=== PATIENT | male | born 1975 | race Caucasian/White ===

== ENCOUNTER 2017-08-20 10:19 | Inpatient (IN) | payer MEDICAID, OTHER ==
[2017-08-20 11:30] LABS: #Basophils 0.1 thou/uL (0.0-0.2); #Eosinphils 0.6 thou/uL (0.0-0.7); #Lymphocytes 3.5 thou/uL (1.20-3.40); #Monocytes 0.8 thou/uL (0.11-0.59); #Neutrophils 5.7 thou/uL (1.40-6.50); %Eosinophils 5.4 % (0.0-10.0); %Lymphocytes 32.6 % (21.0-51.0); %Monocytes 7.1 % (0.0-10.0); %Neutrophils 53.9 % (42.0-75.0); Hemoglobin 13.7 g/dL (14.0-18.0); Mean Corpuscular HGB CONC 33.5 g/dL (32.0-36.0); Mean Corpuscular Hemoglobin 32.7 pg (27.0-31.0); Mean Corpuscular Volume 97.6 fl (80.0-94.0); Mean Platelet Volume 6.8 fL (7.4-10.4); Platelet Count 384 thou/uL (130-400); RBC Distribution Width 11.9 % (11.5-14.5); Red Blood Cell (RBC) Count 4.19 mill/uL (4.70-6.10); White Blood Cell (WBC) Count 10.6 thou/uL (4.8-10.8)
--- NOTE | 2017-08-20 11:43 | CT ---
NONCONTRAST LUMBAR SPINE CT: Date: 08/20/17 HISTORY: Sudden loss of sensation below the waist. Previous L4 fracture. COMPARISON: None. TECHNIQUE: Noncontrast lumbar spine CT is performed in the axial plane. Reformatted images are submitted for int erpretation. FINDINGS: No retroperitoneal mass, lymphadenopathy, or hematoma. Visualized aorta has a normal appearance. Ther e is patchy atherosclerosis. Symmetric attenuation of the psoas muscles. Nonobstructing calcification s in the right renal pelvis. Bilaterally, no evidence of obstructive uropathy. Visualized alimentary canal is unremarkable. Lumbar spine vertebral body height is maintained. There is no fracture. There are six lumbar-type asa tebral bodies. There is lumbar fusion change at the L5-L6 level. There are bilateral transpedicular s crews. No perihardware lucency. There is a prosthesis at the L5-L6 disc space level. 5.6 mm of les listhesis of L5 upon L6. There are bilateral facetectomies involving the inferior facet of L5. Limited evaluation of the contents of the central spinal canal and neural foramina due to the lack of intrathecal contrast. T12-L1: No significant central canal stenosis. Neural foramina are patent bilaterally. L1-L2: Minimal generalized disc bulge. Minimal central canal stenosis. Mild bilateral foraminal narrowing. L2-L3: No significant posterior disc abnormality. No significant central canal stenosis. Mild bilateral fora radha narrowing. L3-L4: Generalized disc bulge. Minimal ligamentum flavum thickening and facet hypertrophy. No significant ce ntral canal stenosis. Mild bilateral foraminal narrowing. L4-L5: Generalized disc bulge. Minimal ligamentum flavum thickening and facet hypertrophy result in minimal central canal stenosis. Moderate bilateral foraminal narrowing. L5-L6: Posterior decompressive laminectomy defect. Limited evaluation of the central spinal canal due to denisha m attenuation artifact. Obvious high grade central canal stenosis is not appreciated. There is at richard st moderate bilateral foraminal narrowing. There appears to be soft tissue density at the laminectomy defect site likely representing scar tissue. Scar tissue appears to abut the posterior aspect of the thecal sac. There is also subtle slightly hyperdensity along the posterior right aspect of the centr al canal. There may be some mass effect upon the traversing right S1 nerve root. L6-S1: No high grade central canal stenosis. Neural foramina are patent. IMPRESSION: Postsurgical changes as above. There is extensive soft tissue density at the laminectomy defect site, incompletely evaluated. There may be significant stenosis of the thecal sac at the operative site. N eurosurgical consultation is recommended. POS: [facility]
--- NOTE | 2017-08-20 11:47 | CT ---
CT THORACIC SPINE WITH CORONAL AND SAGITTAL REFORMATIONS: Date: 08/20/17 HISTORY: Sudden loss of sensation below the waist. Patient had previous L4 fracture. FINDINGS/IMPRESSION: Vertebral body heights are maintained. No fracture, subluxation, or bony destruction is seen. There a re degenerative changes in the costovertebral joints at multiple levels. The visualized lung shanks are clear. A tiny, nonobstructing right renal calculus is present. If a MRI cannot be performed, a CT myelogram would be helpful if clinically indicated. POS: [facility]
[2017-08-20 11:51] LABS: ALT (SGPT) 53 U/L (8-55); AST (SGOT) 37 U/L (5-34); Albumin 4.4 g/dL (3.5-5.0); Alkaline Phosphatase 101 U/L (40-150); Anion Gap 13 mmol/L (10-20); BUN (Urea Nitrogen) 6 mg/dL (8.9-20.6); Bilirubin, Total 0.8 mg/dL (0.2-1.2); Calc. Creatinine Clearance 0 mL/min (70-130); Calcium 10.1 mg/dL (7.8-10.44); Carbon Dioxide 27 mmol/L (22-29); Chloride 103 mmol/L (98-107); Estimated GFR-MDRD Greater than 90; Globulin 3.5 g/dL (2.4-3.5); Glucose 141 mg/dL (70-105); Potassium 3.9 mmol/L (3.5-5.1); Protein, Total 7.9 g/dL (6.0-8.3); Sodium 139 mmol/L (136-145)
--- NOTE | 2017-08-20 14:47 | MRI ---
MRI CERVICAL SPINE WITHOUT CONTRAST: Date: 08/20/17 Multiplanar, multisequential imaging of the cervical spine obtained. HISTORY: Loss of sensation below the waist. Evaluate for disc herniation. No comparison. FINDINGS: Cervical vertebra maintain normal height and alignment. Disc spaces show mild narrowing at C5-6. The other disc spaces are relatively well preserved. Very mild degenerative osteophytes in the cervical v ertebra. At C3-4, there is mild disc bulge and spondylosis which abuts the anterior cord. Mild bilateral piter inal narrowing due to uncinate hypertrophy. At C4-5, there is minimal spondylosis with no significant disc bulge. Anterior subarachnoid space is preserved. No significant foraminal encroachment or stenosis. At C5-6, there is a prominent disc protrusion paracentrally to the left, severely flattening the cord . This is measured at up to 8.0 mm AP dimension in the axial plane. There is severe impingement on th e cord. There is abnormal signal within the cord at this level indicating myelomalacia. There is a si gnificant focus of increased T2 signal in the cord to the right of midline at C5-6 which measures susy roximately 9.0 mm craniocaudal dimension in the sagittal plane. At C6-7, there is no significant disc abnormality. IMPRESSION: 1. Large disc protrusion paracentrally to the left at C5-6 severely compresses the cord and produces left foraminal stenosis. There is significant cord signal abnormality within the cord to the right o f midline at the C5-6 level consistent with cord edema and/or myelomalacia. 2. Mild disc bulge and spondylosis at C3-4 is noted as described above. POS: [facility]
[2017-08-20] MEDS ORDERED: Dexamethasone 4 mg/ml Vial ONE (15:23)
[2017-08-20 17:31] VITALS: BMI 32.3
--- NOTE | 2017-08-20 17:31 | PRG ---
DATE OF SERVICE: 08/20/2017 NEUROSURGERY PROGRESS NOTE I personally interviewed and examined the patient and agree with documentation of Shannon Rogel PA-C , dated 08/20/2017. Briefly, Aubrey Mireles is a patient from our neurosurgery clinic. In 2016, we performed a decompressi on fusion in the lumbar spine that went well and he made a nice recovery. He had no known cervical s pondylitic myelopathy for which he consulted with us recently. An MRI scan showed very large disk he rniation at C5-6 and small one at C3-4, both associated with a T2 signal change in his spinal cord. There were multiple attempts with the insurance company with trying to get ACDF at 2 levels approved. They have been dragging their feet and denying surgery for some reason. He has myelopathic finding s on examination and cord compression and I cannot understand their denial. It is with his sister that Mr. Mireles was at home attempting to go up the ramp at his house when he fe ll today and falling resulted in some patchy sensory alteration in multiple areas of the body, which are difficult to explain, to be honest. On examination, when I see him in the emergency department, he has antigravity strength in all of his muscles of his lower extremities and sensation all the way to the bottom of his feet and in the sadd le area. When specifically asking him, he does not cooperate reliably with his examination. At firs t, there is sensation all the way down the leg and then the sensation sometimes stops at the umbilicu s. Subjectively, sensation is intact farther down on the abdominal surface on the left side than the right, but the opposite is true on the back of the thorax. When I asked him to perform motor maneuv ers with the lower extremities, he often performs the maneuver with the opposite leg. He tells me he forgot which leg he needed to move, all of which makes me wonder about true neurological function. Nonetheless, he cannot purposefully reproduce the pathologically brisk reflexes and clonus that he ex hibits on examination. His MRI scan of the cervical spine looks exactly like the previous one with T 2 signal change in the cord at C3-4 and C5-6. There are 2 large disk protrusions and cord compressio n, which are indeed causing symptoms, in my view. Because of the new sensory alterations around the level of the umbilicus and below, I think we are ob ligated to get an MR imaging of the thoracic and upper lumbar spine tomorrow, but my plan is to immob ilize the neck, use some steroids to cool off any inflammation that is happening and perform an ACDF at 2 levels in the coming day or two while he is in the hospital and hopefully get him discharged bef ore the weekend. We will admit him now. We will schedule MR imaging of the thoracic and lumbar spin e tomorrow. We will ask Medicine to see him for elevated sed rate and CRP to see if there is any inf ection that they can find, although he is afebrile. He has been consented already to surgery. We we nt over again the indications, risks, benefits, alternatives, expected outcomes of ACDF. The risks w e discussed included, but were not limited to bleeding, infection, CSF leak, damage to the trachea, e sophagus, vocal cords carotid artery, jugular vein, swallowing mechanism and serious complications li ke cardiopulmonary complications of anesthesia, major bleeding and . He understands all those r isks and wants to proceed with the surgery we outlined in clinic.
[2017-08-20 18:14] LABS: Bilirubin Negative (Negative); Blood, Urine Negative (Negative); Clarity CLEAR (Clear); Glucose, Urine (Dipstick) Negative (Negative); Leukocyte Negative (Negative); Nitrite Negative (Negative); Protein, Urine (Dipstick) Negative (Neg-Trace); Specific Gravity, Urine 1.008 (1.002-1.036)
[2017-08-20 18:15] LABS: Bacteria/HPF None Seen HPF (None Seen); Hyaline Casts/LPF 0-3 HYALINE CAST LPF (0-3 Hyaline); Pathc Cast-AUWi Flag 0.13 (0-2.49); RBC/HPF 0-3 HPF (0-3); Squamous Epithelial None Seen HPF (0-3); WBC/HPF None Seen HPF (0-3)
[2017-08-20] MEDS ORDERED: traMADol HCl 50 MG TAB PO PRN (19:52)
[2017-08-20] MEDS ORDERED: diphenhydrAMINE 50 MG/ML VIAL IVP PRN (19:52)
[2017-08-20] MEDS ORDERED: Mag-Al 1200 mg/1200 mg/30 ML UDCUP PO PRN (19:52)
[2017-08-20] MEDS ORDERED: Promethazine 25 MG TAB PO PRN (19:52)
[2017-08-20] MEDS ORDERED: Milk Of Magnesia 30 ML UDCUP PO PRN (19:52)
[2017-08-20] MEDS ORDERED: tiZANidine HCl 4 MG TAB PO PRN (19:52)
[2017-08-20] MEDS ORDERED: Ondansetron HCl/PF 4 MG/2 ML Vial IVP PRN (19:52)
[2017-08-20] MEDS: Sodium Chloride 0.9% 1,000 ML IV SCH (20:53)
[2017-08-20] MEDS: Glimepiride 4 MG TAB PO SCH (20:54)
[2017-08-20] MEDS: Atorvastatin Calcium 20 MG TAB PO SCH (20:54)
[2017-08-20] MEDS: Gabapentin 300 MG CAP PO SCH (20:54)
--- NOTE | 2017-08-20 22:31 | HP ---
ATTENDING PHYSICIAN: Brook Reece M.D. HISTORY OF PRESENT ILLNESS: The patient is a 42-year-old male known to Dr. Reece for a prior L5-L6 lumbar fusion in 2016, who was doing well until the last several weeks when he began hav ing some dysesthesias to the arms and weakness to bilateral lower extremities. He was evaluated in [facility] for these suspected cervical myelopathic symptoms and MRI of the cervical spine was done which was notable for disk herniation at C5-C6 and also a smaller disk herniation at C3-C4 associated with significant cord compression. He had planned to do 2-level ACDF in the near future; however, it has been difficult getting insurance approval. Mr. Mireles reports that his symptoms became progressively worse yesterday after a fall with increased weakness to bilateral lower extremities as well as increa sing dysesthesias to the legs. He was seen in the Emergency Department and evaluated with repeat cer vical MRI which again shows large disk herniation at C5-C6 and smaller disk herniation at C3-C4 with a T2 signal change. I am seeing the patient on the floor. He reports sensory changes in bilateral l ower extremities occasionally to the bilateral upper extremities. He reports on my exam, he is signi ficantly weak in the legs and unable to ambulate on his own. He has hyperreflexia throughout and had a positive clonus to the lower extremities. PAST MEDICAL HISTORY: The patient reports he has a past medical history of hypertension, hyperlipide enma, type 2 diabetes. PAST SURGICAL HISTORY: L4-L5 decompression and fusion, wrist surgery, reconstructive duct surgery. FAMILY HISTORY: Notable for diabetes, hypertension, coronary artery disease. SOCIAL HISTORY: The patient is . He lives at home. He smokes approximately 2 packs of cigar ettes per day. CURRENT MEDICATIONS: Tylenol #3 one tab p.o. t.i.d., amlodipine 5 mg tab 1 tab p.o. daily, atorvasta tin 20 mg tab 1 tab p.o. at bedtime, bupropion 100 mg tab 1 tab p.o. daily, gabapentin 300-mg tab 600 mg p.o. t.i.d., glimepiride 4 mg tab 1 tab p.o. b.i.d., metformin 500-mg tab 500 mg p.o. daily, and tizanidine 4 mg tab 1 tab p.o. b.i.d. REVIEW OF SYSTEMS: Per HPI. PHYSICAL EXAMINATION: CONSTITUTIONAL: Patient is sitting in the wheelchair, in no acute distress, comfortable. HEENT: Head is normocephalic, atraumatic. Eyes: PERRLA. Extraocular movements are intact. ENT: Oral mucosa is pink, intact and moist. He has normal voice. NECK: He is currently wearing a cervical collar. CARDIOVASCULAR: Regular rate and rhythm. PULMONARY: The patient is breathing comfortably. No evidence of dyspnea. Symmetric chest expansion . MUSCULOSKELETAL: He has good muscle tone to bilateral upper and lower extremities. Symmetric pulses 5/5 strength in the upper extremities. Negative Paulino's. Slightly hyperreflexive in the biceps a nd triceps. Lower extremities: He is significantly weak throughout the lower extremities 4-/5 on my exam. He is unable to ambulate secondary to his weakness. He is hyperreflexive in the lower extrem ities and he has a positive clonus. NEUROLOGIC: He is A and O x4. Weakness appreciated in the bilateral lower extremities. ASSESSMENT AND PLAN: I discussed the case with Dr. Reece who will also see the patient. He is r ecommended that we start patient on steroids and I have ordered 10 Decadron to be given in the ER and will continue 4 mg q.6 hours. We will also evaluate the patient further with a thoracic and lumbar MRI. The hospitalist has been consulted for assistance in medical management. The patient will requ yolanda surgical intervention and this will likely be done on morning. Please reach out to Neur osurgery Service for additional questions or concerns.
[2017-08-21] MEDS ORDERED: Dextrose 5% in Water 1,000 ML IV PRN (05:06)
[2017-08-21] MEDS ORDERED: Insulin Regular 300 UNITS/3 ML VIAL SC PRN (05:06)
[2017-08-21] MEDS ORDERED: Dextrose 50% Abboject 50 ML SYRINGE SLOW IVP PRN (05:06)
--- NOTE | 2017-08-21 06:36 | CON ---
DATE OF CONSULTATION: 08/21/2017 REASON FOR CONSULTATION: Medical management. HISTORY OF PRESENT ILLNESS: This is a 42-year-old male with a history of diabetes, hypertension, and hyperlipidemia who presented with weakness to bilateral lower extremities, numbness of right upper extremity and right lower extremity. Please see the original history and physical for full details surrounding his admission. The patient was found to have disk herniation of C5- C6 with smaller disk herniation at C3-C4. It appears that there are plans for potential neurosurgical intervention this week. The patient is able to provide the history as above. Consultation is requested for medical management of co- morbidities including DM2, hypertension. At the time of my evaluation, the patient denies any pain, he reports subjective weakness of bilateral lower extremities and anesthesia of his right foot and right upper extremity. Denies any other complaints. Denies any neck pain. REVIEW OF SYSTEMS: As per HPI, includes: Constitutional: Denies any recent fevers or chills. Denies any weight changes. HEENT: Denies any new headaches , dizziness, lightheadedness, difficulty swallowing. Cardiovascular: Denies any chest pressure, chest pain, left-sided arm numbness or tingling. Respiratory: Denies any episodes of shortness of breath, cough, recent upper respiratory infection. Denies any congestion, postnasal drip or ear pain. Gastrointestinal: Denies any nausea, vomiting. Denies any abdominal pain. Denies any constipation, did have loose stools yesterday, but denies any frequent diarrhea beyond 1 to 2 bowel movements a day. Musculoskeletal: Please see the HPI as above. Genitourinary: Denies any dysuria, any changes in urine color, quantity or frequency. Remainder of review of systems otherwise negative. PAST MEDICAL HISTORY: As per above. 1. Type 2 diabetes. 2. Obesity. 3. Hypertension. 4. Hyperlipidemia. PAST SURGICAL HISTORY: 1. Status post L4-L5 decompression and fusion. 2. Reconstructive duct surgery. 3. Status post wrist surgery. HOME MEDICATIONS: Please see the EMR for full details. The patient denies any changes in the last month to his home medication regimen. Denies any new over the counter, herbal regimens, vitamins or supplements in the past month.. FAMILY HISTORY: Significant for coronary artery disease, diabetes, and hypertension. SOCIAL HISTORY: The patient is . His is with him at bedside. He is an active tobacco smoker, 2 packs per day. Currently precontemplative of cessation. Denies any alcohol or illicit drug use. PHYSICAL EXAMINATION: VITAL SIGNS: Temperature of 97.8, pulse of 93, respirations 19, satting 94% on room air, blood pressure 126/85. GENERAL: The patient is awake, alert, appropriate, reasonable historian, provides a history as above, awake and oriented x3, no acute distress, seated in the hospital bed. HEENT: Moist mucous membranes. Equal ocular motions are intact. Pupils equal and reactive. Normocephalic, atraumatic. CARDIOVASCULAR: S1, S2. Pulses 2+ bilateral upper extremities, no pitting pedal edema. No murmurs, rubs or gallops. RESPIRATORY: Clear to auscultation. No wheezes, rales or rhonchi. Reasonable air movement. ABDOMEN: Positive bowel sounds, soft, nontender to palpation. MUSCULOSKELETAL: Moving all 4 extremities, although the patient states that he "has to concentrate" within the right lower extremity which is grossly strength 4/5 on right, 5/5 on the left, did not test reflexes or sensation. LABORATORY DATA AND IMAGING: WBC 10.6, hemoglobin 13.7, hematocrit 40.9, platelets 384. Sodium 139, potassium 3.9, chloride 103, bicarb 27, BUN 6, creatinine 0.82, glucose 141, calcium 10.1, total bilirubin 0.7, AST 37, ALT 53 , alkaline phosphatase 101. CRP 3.25, total protein 7.9, albumin 4.4. UA is essentially bland. On 08/20/2017, MRI of the cervical spine, impression: "Large disk protrusion paracentrally to the left at C5-C6 severely compresses the cord and produces left foraminal stenosis. There is significant cord signal abnormality within the cord to the right of midline at the C5-C6 level consistent with cord edema and/or myelomalacia. Mild disk bulge and spondylosis at C3-C4 as noted and described above." On 08/20/2017, lumbar spine CT, impression: "Postsurgical changes as above. There is extensive soft tissue density at the laminectomy defect site incompletely evaluated. There may be significant stenosis of the thecal sac at the operative site. Neurosurgical consultation is recommended." On 08/20/2017, thoracic spine finding, impression: Vertebral body heights are maintained. No fracture, subluxation, or bony destruction is seen. There are degenerative changes in the costovertebral joints at multiple levels. The visualized lung shanks are clear. A tiny nonobstructing right renal calculus is present. If an MRI cannot be performed, CT myelogram would be helpful if clinically indicated. ASSESSMENT AND PLAN: A 42-year-old male presenting with sudden loss of sensation below the wrist on right side. 1. Appreciate neurosurgical input, management as per Neurosurgery. 2. Type 2 diabetes. The patient is currently continued on his home regimen. If the patient is going to the OR, we will consider holding oral antihyperglycemic. We continue monitoring with sliding scale insulin and serial Accu-Cheks. The patient is currently on steroids for cord edema and this will likely produce some medication-induced hyperglycemia to be managed with insulin on a "sliding scale" basis. 3. Hypertension, stable. 4. Hyperlipidemia, stable. Thank you for asking us to consult for the patient. As the patient is currently afebrile without leukocytosis, I would recommend holding off on empiric antibiotics other than the typical pre-operative regimen. If there is any concern for infection, surgical culture obtained during procedure would be optimal to determine if any long-term antibiotics are warranted. We will follow along with you. SIMA
--- NOTE | 2017-08-21 07:36 | PRG ---
DATE OF SERVICE: 08/21/2017 Mr. Mireles is feeling better after steroid administration overnight. The subjective patchy sensory lo ss from the umbilicus down has improved, but is not normal. He does not know if his leg strength is back to normal. The neck collar feels a bit uncomfortable, but he is getting used to it and he is an xious not having his nicotine. Overnight, the vitals have been stable. On my neurological examination, I do not find any new defici ts from yesterday. In fact, the sensory disturbance has subjectively improved. There is no new imaging to update yet for planning a thoracic and lumbar film this time with contrast due to the elevated sedimentation rate and C-reactive protein. We will ensure that there is no cord compression elsewhere, which I do not believe we will find, and if not, we will plan an ACDF at C3-4 and C5-6 tomorrow. He has been consented for this a number of times. I appreciate the help of the medical team in managing his diabetes and following up an elevated C-juaquin ctive protein and sed rate.
[2017-08-21] MEDS ORDERED: metFORMIN 500 MG TAB PO SCH (09:00)
[2017-08-21] MEDS: Gabapentin 300 MG CAP PO SCH ×3 (09:39→20:50)
[2017-08-21] MEDS: Glimepiride 4 MG TAB PO SCH (09:40)
[2017-08-21] MEDS: buPROPion HCl 100 MG TAB PO SCH (09:40)
[2017-08-21] MEDS: Amlodipine 5 MG TAB PO SCH (09:40)
--- NOTE | 2017-08-21 13:19 | MRI ---
MRI THORACIC SPINE WITH AND WITHOUT CONTRAST: Technique: Multiplanar, multisequential imaging of the thoracic spine obtained. Post contrast images were obtained after administration of 20 cc MultiHance IV. Indication: Pain alteration below umbilicus. Leg weakness. FINDINGS: The thoracic vertebrae maintain normal height and alignment. There is a rounded lesion involving the T9 vertebra which exhibits high T1 and high T2 signal consistent with vertebral body hemangioma. There is evidence of subtle edema and enhancement involving the anterior superior aspect of the T2 ve rtebra. This may be on the basis of mild degenerative endplate change. There is no loss of height. No evidence of edema or enhancement seen in the thoracic spine. T4-5: There is a tiny signal abnormality seen in the anterior spinal canal at the right of midline, p ossibly represent a tiny focal disc or osteophyte which indents the thecal sac and is best appreciate d on T2 axial images. No significant cord impingement. T5-6: Evidence of a small asymmetric disc or osteophyte projection centrally and slightly to the righ t of midline flattening the thecal sac and effacing the anterior subarachnoid space. This does appear to impinge on the cord and produces slightly flattening of the anterior cord to the right, best appr eciated on the axial images. No other evidence of significant disc bulge or disc protrusion. No other central canal stenosis or im pingement on the cord. No abnormal enhancement. IMPRESSION: 1. At T5-6 there is a small signal abnormality encroaching into the spinal canal centrally and just t o the right of midline which is consistent with small disc or osteophyte which does impinge on the co rd, best appreciated on axial images. 2. T4-5 there is also a tiny disc or osteophyte projecting into the anterior spinal canal to the righ t of midline mildly effacing the anterior subarachnoid space but not appearing to impinge on the cord . Again this is best seen on axial images. POS: [facility]
--- NOTE | 2017-08-21 13:21 | MRI ---
LUMBAR SPINE MRI WITH AND WITHOUT CONTRAST: HISTORY: Paresthesia from the waist down. Decreased leg sensation. Elevated PROCUREMENT ACCOUNTANT and ESR. Evaluate for infec tion. COMPARISON: None. CORRELATION: Lumbar spine CT from 08/20/2017. FINDINGS: There is appropriate T1 marrow signal intensity of the lumbar vertebra. There is fusion change at L5 and L6. Nomenclature follows the CT performed yesterday. There is associated metallic susceptibili ty artifact. There is abnormal soft tissue signal intensity at the laminectomy defect site at L5-L6. There is T2 hypointensity and T1 hypointensity with associated mild enhancement. Imaging features are most compatible with post surgical scar rather than an abscess. There is symmetric signal intensity of the psoas muscles. There is appropriate signal intensity of t he visualized solid organs. The conus medullaris terminates at the L1-L2 level. On the post contrast images, there is no abnormal enhancement within the thecal sac, including the ca uda equina and the conus medullaris. There is no abnormal enhancement of the vertebral bodies. No significant STIR hyperintensity, disk edema, or ligamentous injury. L1-L2: Right paroxysmal disk bulge. Mild central canal stenosis. The right neural foramen is paten t. L2-L3: Mild left foraminal narrowing at L2-L3. Adequate disk hydration. No high grade central vitaliy l stenosis. The neural foramina are patent bilaterally. L3-L4: No high grade central canal stenosis. Mild bilateral foraminal narrowing. L4-L5: No high grade central canal stenosis. There is posterior element hypertrophy. Mild bilatera l foraminal narrowing. L5-L6: Posterior decompressive laminectomy defect. No high grade central canal stenosis. Moderate bilateral foraminal narrowing. L6-S1: No high grade central canal stenosis or high grade foraminal narrowing. IMPRESSION: 1. Post surgical and degenerative changes of the lumbar spine, as above. 2. Enhancing scar tissue at the laminectomy defect site. No MR evidence of epidural abscess. No ot her scar tissue. No high grade central canal stenosis is appreciated. The previously suggested mass effect on the traversing right S1 nerve root is not appreciated at the L5-L6 level. POS: [facility]
[2017-08-21] MEDS: HYDROcodone/Acetaminophen 7.5/325 mg Tablet PO PRN ×2 (15:00→20:49)
[2017-08-21] MEDS: Sodium Chloride 0.9% 1,000 ML IV SCH ×2 (15:00→22:49)
[2017-08-21] MEDS: Atorvastatin Calcium 20 MG TAB PO SCH (20:50)
--- NOTE | 2017-08-22 07:05 | PRG ---
DATE OF SERVICE: 08/22/2017 I saw Mr. Mireles this morning, he is resting comfortably in bed as I entered the room and arouses afte r we arouse him. He recently got some narcotic pain medication and therefore he is quite sleepy, but awakes and answers questions appropriately. I do not see any fevers recorded on his vital signs. H is other vitals are all stable. His neurological examination is improved since his admission with th e addition of steroids after his very mild spinal cord injury from a fall. MR imaging performed yesterday did not show significant cord compression or canal stenosis in the tho racic or the lumbar spine and there is no evidence of acute injury. Mr. Mireles has disk disease at C3-4 and at C5-6, both of which cause cord compression and T2 signal ch miguel in the cord. He has myelopathy and we are going to fix it today with an ACDF. I have consented him multiple times to the surgery and he has agreed to proceed. He has been n.p.o. We will do the operation this afternoon.
[2017-08-22] MEDS: Amlodipine 5 MG TAB PO SCH (09:09)
[2017-08-22] MEDS: Gabapentin 300 MG CAP PO SCH ×3 (09:10→21:45)
[2017-08-22] MEDS: buPROPion HCl 100 MG TAB PO SCH (09:12)
--- NOTE | 2017-08-22 13:48 | PDOC.PN ---
- Subjective Encounter Start Date: 08/22/17 Encounter Start Time: 08:40 Pt seen for followup re; diabtes mellitus. Denies chest pain or shortness of breath. - Objective Vital Signs & Weight: Vital Signs (12 hours) Temp Pulse Resp BP Pulse Ox 08/22/17 11:45 98.1 F 82 16 164/99 H 98 08/22/17 09:09 73 08/22/17 07:40 97.9 F 73 20 134/83 97 08/22/17 05:06 98.0 F 65 19 136/88 95 I&O: 08/21/17 08/22/17 08/23/17 06:59 06:59 06:59 Intake Total 1050 1500 Output Total 800 Balance 1050 700 Result Diagrams: 08/20/17 11:20 08/20/17 11:20 Additional Labs: Accuchecks 08/22/17 08/22/17 08/21/17 11:44 06:02 20:36 POC Glucose 152 H 180 H 160 H 08/21/17 15:39 POC Glucose 139 H Phys Exam - Physical Examination Constitutional: NAD HEENT: moist MMs C-spine collar Respiratory: clear to auscultation bilateral Cardiovascular: RRR Gastrointestinal: soft Neurological: moves all 4 limbs Psychiatric: normal affect Dx/Plan (1) DM2 (diabetes mellitus, type 2) Status: Chronic Comment: Continue accuchecks, insulin sliding scale. (2) HTN (hypertension) Code(s): I10 - ESSENTIAL (PRIMARY) HYPERTENSION Status: Chronic Comment: Monitor vital signs, titrate antihypertensives as needed (3) Dyslipidemia Code(s): E78.5 - HYPERLIPIDEMIA, UNSPECIFIED Status: Chronic Comment: Continue statin - Plan * . Review of Systems - Review of Systems Respiratory: negative: Cough, Dry, Shortness of Breath, Hemoptysis, SOB with Excertion, Pleuritic Pain, Sputum, Wheezing Cardiovascular: negative: chest pain, palpitations, orthopnea, paroxysmal nocturnal dyspnea, edema, light headedness - Medications/Allergies Allergies/Adverse Reactions: Allergies Allergy/AdvReac Type Severity Reaction Status Date / Time amoxicillin Allergy Verified 08/31/15 12:45 iodine Allergy Rash Verified 08/31/15 12:45 Medications: Current Medications Hydrocodone Bitart/Acetaminophen ([place] 7.5/325) 1 tab PO Q4H PRN PRN Reason: Moderate Pain (4-6) Last Admin: 08/21/17 20:49 Dose: 1 tab Al Hydroxide/Mg Hydroxide (Maalox) 30 ml PO Q4H PRN PRN Reason: Indigestion Amlodipine Besylate (Norvasc) 5 mg PO DAILY [facility] Last Admin: 08/22/17 09:09 Dose: 5 mg Atorvastatin Calcium (Lipitor) 20 mg PO HS [facility] Last Admin: 08/21/17 20:50 Dose: 20 mg Bupropion HCl (Wellbutrin) 100 mg PO DAILY [facility] Last Admin: 08/22/17 09:12 Dose: 100 mg Dextrose/Water (Dextrose 50%) 25 gm SLOW IVP PRN PRN PRN Reason: Hypoglycemia Diphenhydramine HCl (Benadryl) 25 mg IVP Q6H PRN PRN Reason: Itching Gabapentin (Neurontin) 600 mg PO TID [facility] Last Admin: 08/22/17 09:10 Dose: 600 mg Glucagon (Glucagon) 1 mg IM PRN PRN PRN Reason: Hypoglycemia Sodium Chloride (Normal Saline 0.9%) 1,000 mls @ 75 mls/hr IV .[id number] [facility] Last Admin: 08/21/17 22:49 Dose: Not Given Dextrose/Water (D5w) 1,000 mls @ 0 mls/hr IV .Q0M PRN; As Directed PRN Reason: Hypoglycemia Insulin Human Regular (Humulin R) 0 units SC .MILD SLIDING SCALE PRN PRN Reason: Mild Correctional Scale Magnesium Hydroxide (Milk Of Magnesium) 30 ml PO Q12H PRN PRN Reason: Constipation Morphine Sulfate (Morphine Sulfate) 2 mg SLOW IVP Q1H PRN PRN Reason: Moderate Breakthrough Pain Last Admin: 08/22/17 09:29 Dose: 2 mg Ondansetron HCl (Zofran) 4 mg IVP Q6H PRN PRN Reason: Nausea Promethazine HCl (Phenergan) 12.5 mg PO Q4H PRN PRN Reason: Nausea/Vomiting Sodium Chloride (Flush - Normal Saline) 10 ml IVF PRN PRN PRN Reason: Saline Flush Tizanidine HCl (Zanaflex) 4 mg PO Q6H PRN PRN Reason: Muscle Spasm Tramadol HCl (Ultram) 50 mg PO Q6H PRN PRN Reason: Mild Pain (1-3)
[2017-08-22] MEDS ORDERED: CEFAZOLIN/Water 2 GM/20 ML SYRINGE ONE (14:05)
[2017-08-22] MEDS: Sodium Chloride 0.9% 1,000 ML IV SCH (14:33)
[2017-08-22] MEDS ORDERED: Morphine 2 MG/ML SYRINGE ONE (14:44)
[2017-08-22] MEDS ORDERED: Lidocaine 1% PF 5 ML VIAL ONE (15:16)
[2017-08-22] MEDS ORDERED: Ondansetron HCl/PF 4 MG/2 ML Vial ONE (15:16)
[2017-08-22] MEDS ORDERED: Glycopyrrolate 0.2 MG/ML 5 ML SYRINGE ONE (15:16)
[2017-08-22] MEDS ORDERED: ePHEDrine/0.9% NaCl/PF SYRINGE 50 mg/10 ml ONE (15:16)
[2017-08-22] MEDS ORDERED: Dexamethasone 20 MG/5 ML VIAL ONE (15:16)
[2017-08-22] MEDS ORDERED: PROPOFOL 200 MG/20 ML VIAL ONE (15:16)
[2017-08-22] MEDS ORDERED: Sodium Chloride 0.9% 10 ML ONE (15:21)
[2017-08-22] MEDS ORDERED: Thrombin 5000 UNITS/5 ML VIAL ONE (15:21)
[2017-08-22] MEDS ORDERED: Fentanyl 250 MCG/5 ML VIAL ONE ×2 (15:32→19:35)
[2017-08-22] MEDS ORDERED: Fentanyl 100 MCG/2 ML VIAL ONE (17:38)
[2017-08-22] MEDS ORDERED: tiZANidine HCl 4 MG TAB PO PRN (19:11)
[2017-08-22] MEDS ORDERED: Acetaminophen/Codeine 30-300mg Tablet PO PRN (19:11)
[2017-08-22] MEDS ORDERED: Morphine Sulfate 2 MG/ML SYRINGE SLOW IVP PRN (19:29)
[2017-08-22] MEDS ORDERED: Promethazine HCl 25 MG/ML VIAL SLOW IVP PRN (19:29)
[2017-08-22] MEDS ORDERED: Promethazine HCl 25 MG/ML VIAL IM PRN (19:29)
[2017-08-22] MEDS ORDERED: Ondansetron HCl/PF 4 MG/2 ML Vial IVP PRN (19:29)
[2017-08-22] MEDS: HYDROcodone/Acetaminophen 7.5/325 mg Tablet PO PRN (21:47)
[2017-08-22] MEDS: Atorvastatin Calcium 20 MG TAB PO SCH (21:48)
--- NOTE | 2017-08-22 22:07 | OP ---
DATE OF PROCEDURE: 08/22/2017 SURGEON: Sharita Reece HAND SCUDDER: None. PREOPERATIVE INDICATION: Prevent neurological deterioration. PREOPERATIVE DIAGNOSES: Intervertebral disk disease at C3-C4 and C5-C6 with cord compression and mye lopathy, recent fall with worsening of myelopathy. POSTOPERATIVE DIAGNOSES: Intervertebral disk disease at C3-C4 and C5-C6 with cord compression and my elopathy, recent fall with worsening of myelopathy. PROCEDURES PERFORMED: Anterior cervical diskectomy, intervertebral arthrodesis, placement of interve rtebral biomechanical device C3-C4 and C5-C6, local morselized autograft, morselized Allograft, and o perating microscope. PREOPERATIVE MEDICATION: Ancef 2 grams IV. DRAIN NUMBER: Zero. DRAIN TYPE: None. DESCRIPTION OF PROCEDURE: The patient was brought to the operating room. Keeping the neck in normal anatomic alignment, general endotracheal anesthesia was induced. The patient was carefully position ed on the operating table with his head supported by gel-filled donut shaped head rest and head in ne utral position. A lateral fluoro radiograph was used to plan our incision. The rest of the neck was sterilely prepped and draped. We opened with a 10 blade knife and controlled bleeding with bipolar cautery. We dissected sharply to the platysma and cut this muscle in line with our incision. We con tinued dissecting medial to the sternocleidomastoid, and lateral to the trachea and esophagus. We ar rived at the prevertebral space. We placed a marker at C4-C5 and took a lateral fluoro radiograph to confirm the levels upon, which we were operating. We then elevated the longus colli muscles off the anterior surface of C3, C4, C5, and C6. We placed our lateral self-retaining retractor beneath the longus colli muscles at C5-C6. We placed distraction pins at C5 and C6 and distracted across the int ervening interspace. We incised the interspace with a 15 blade knife and removed disk contents using curettes and rongeurs. The operative microscope was brought in the field. Under microscopic magnification and using microsurgical techniques, we removed the remainder of the i ntervertebral disk. We accessed the ventral epidural space with a micro curette. We removed posteri or longitudinal ligament across the entire interspace from one nerve root foramen all the way to the other foramen. We decompressed the dura across the entire canal and there is no more compression. T here was a significantly large disk fragment behind the posterior longitudinal ligament on the left s krysta indenting the anterior aspect of the dura and the nerve root. This was removed and there was no further compression. We prepared the endplates for grafting using curettes and measured the height o f the interspace to 7 mm. A 7 mm PEEK intervertebral graft was brought into the field. Osteophytes that had been removed during our decompression were cleaned of their soft tissue, morselized and adde d to demineralized bone matrix to form our fusion substrate. The substrate was placed in the center of the PEEK graft and the graft advanced into the interspace under radiographic guidance to the appro priate depth. We then removed our distraction pins and our lateral retractors. We removed these to C3-C4, distracted across the interspace and sized it and removed good disk contents using curettes an d rongeurs. We continued under the operative microscope to remove the remainder of the intervertebra l disk. We accessed the ventral epidural space with a micro curette and used a Kerrison rongeur to r emove posterior osteophytes and posterior longitudinal ligament across the entire interspace from one neural foramen all the way to the other. The dura was well decompressed throughout. We used curett es to prepare the endplates for grafting and measured the height of the interspace to 7 mm. Another 7 mm PEEK graft was brought into the field. This was loaded with demineralized bone matrix and garrido lized autograft as our fusion substrate. The graft was advanced into the interspace under radiograph ic guidance into the appropriate depth. We removed distraction pins from C3 and C4 and the operative microscope was taken back out of the field. We brought a 30 mm anterior cervical plate into the field. We drilled pilot instructor holes through the plate into the vertebral bodies at C3 and C4. We affixed the plate using 14 mm screws. Fixed angle screws were used at C4 and variable angle screws at C3. In a similar fashion, another 30 mm plate was brou ght into the field. We drilled pilot instructor holes through the plate into the C5 and C6 vertebral segments a nd affixed the plate using variable angle screws above and fixed angle screws below. We engaged the locking mechanism over each of the 8 screws. We irrigated copiously with bacitracin irrigation. Hem ostasis was excellent. We closed the wound in anatomic layers and we applied a sterile dressing. Th is was a clean case and no contamination.
[2017-08-22] MEDS ORDERED: Glimepiride 4 MG TAB PO SCH (22:30)
[2017-08-22] MEDS: CEFAZOLIN/Water 2 GM/20 ML SYRINGE SLOW IVP SCH (22:36)
[2017-08-23] MEDS: Sodium Chloride 0.9% 1,000 ML IV SCH ×2 (02:49→14:48)
[2017-08-23] MEDS: HYDROcodone/Acetaminophen 7.5/325 mg Tablet PO PRN ×2 (03:48→12:35)
[2017-08-23] MEDS: CEFAZOLIN/Water 2 GM/20 ML SYRINGE SLOW IVP SCH ×2 (03:49→12:36)
--- NOTE | 2017-08-23 06:52 | PRG ---
DATE OF SERVICE: 08/23/2017 I went in Mr. 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 Mr. Mireles is not in the room. His nurse reports he went downstairs under his own power. I am assumi ng this is for use of a nicotine products which I strenuously told him to avoid. This does not make me happy, if true. If Mr. Mireles is well enough to get out of bed to go downstairs under his own power and come back up t o his room, he is ready for discharge. We will see him in the office in 2 weeks. We will start phys ical therapy then and we are going to stress to him on multiple occasions as we have in the past to q uit all nicotine.
[2017-08-23] MEDS: buPROPion HCl 100 MG TAB PO SCH (08:24)
[2017-08-23] MEDS: Gabapentin 300 MG CAP PO SCH ×2 (08:24→14:48)
[2017-08-23] MEDS: Amlodipine 5 MG TAB PO SCH (08:24)
[2017-08-23] MEDS ORDERED: metFORMIN 500 MG TAB PO SCH (09:00)
[2017-08-23] MEDS ORDERED: Lisinopril 20 MG TAB PO SCH (09:00)
[2017-08-23] MEDS ORDERED: Glimepiride 4 MG TAB PO SCH (09:00)
[2017-08-23] MEDS ORDERED: CEFAZOLIN/Water 2 GM/20 ML SYRINGE SLOW IVP SCH (12:15)
--- NOTE | 2017-08-23 14:37 | PDOC.PN ---
- Subjective Encounter Start Date: 08/23/17 Encounter Start Time: 08:20 Pt seen for followup re: diabetes mellitus. Denies any chest pain, shortness of breath or fevers. - Objective MAR Reviewed: Yes Vital Signs & Weight: Vital Signs (12 hours) Temp Pulse Resp BP BP Pulse Ox 08/23/17 12:18 97.7 F 83 20 108/77 98 08/23/17 08:28 179/116 H 08/23/17 08:24 83 179/116 H 08/23/17 08:00 97.6 F 83 16 99 08/23/17 04:56 97.8 F 87 18 148/93 H 95 I&O: 08/22/17 08/23/17 08/24/17 06:59 06:59 06:59 Intake Total 1500 6190 350 Output Total 800 4225 Balance 700 1965 350 Result Diagrams: 08/20/17 11:20 08/20/17 11:20 Additional Labs: Accuchecks 08/23/17 08/23/17 08/23/17 14:04 10:43 05:31 POC Glucose 115 H 116 H 174 H 08/22/17 21:38 POC Glucose 314 H Phys Exam - Physical Examination Obese HEENT: oral pharynx no lesions Neck: supple Respiratory: clear to auscultation bilateral Cardiovascular: RRR Neurological: moves all 4 limbs Psychiatric: normal affect Deviation from normal: Dressing over neck Dx/Plan (1) DM2 (diabetes mellitus, type 2) Status: Chronic Comment: On accuchecks, insulin sliding scale. (2) HTN (hypertension) Code(s): I10 - ESSENTIAL (PRIMARY) HYPERTENSION Status: Chronic Comment: titrate antihypertensives as needed (3) Dyslipidemia Code(s): E78.5 - HYPERLIPIDEMIA, UNSPECIFIED Status: Chronic Comment: On statin - Plan plan discussed w/ family, out of bed/ambulate * . Patient can continue home medications after discharge and follow up with PCP. Review of Systems - Review of Systems Respiratory: negative: Cough, Dry, Shortness of Breath, Hemoptysis, SOB with Excertion, Pleuritic Pain, Sputum, Wheezing Cardiovascular: negative: chest pain, palpitations, orthopnea, paroxysmal nocturnal dyspnea, edema, light headedness - Medications/Allergies Allergies/Adverse Reactions: Allergies Allergy/AdvReac Type Severity Reaction Status Date / Time amoxicillin Allergy Verified 08/31/15 12:45 iodine Allergy Rash Verified 08/31/15 12:45 Medications: Current Medications Acetaminophen/Codeine Phosphate (Tylenol #3) 1 tab PO TID PRN PRN Reason: Pain Hydrocodone Bitart/Acetaminophen ([place] 7.5/325) 1 tab PO Q4H PRN PRN Reason: Moderate Pain (4-6) Last Admin: 08/23/17 12:35 Dose: 1 tab Al Hydroxide/Mg Hydroxide (Maalox) 30 ml PO Q4H PRN PRN Reason: Indigestion Amlodipine Besylate (Norvasc) 5 mg PO DAILY [facility] Last Admin: 08/23/17 08:24 Dose: 5 mg Atorvastatin Calcium (Lipitor) 20 mg PO HS [facility] Last Admin: 08/22/17 21:48 Dose: 20 mg Bupropion HCl (Wellbutrin) 100 mg PO DAILY [facility] Last Admin: 08/23/17 08:24 Dose: 100 mg Dextrose/Water (Dextrose 50%) 25 gm SLOW IVP PRN PRN PRN Reason: Hypoglycemia Diphenhydramine HCl (Benadryl) 25 mg IVP Q6H PRN PRN Reason: Itching Gabapentin (Neurontin) 600 mg PO TID [facility] Last Admin: 08/23/17 08:24 Dose: 600 mg Glimepiride (Amaryl) 4 mg PO BID [facility] Last Admin: 08/23/17 08:25 Dose: 4 mg Glucagon (Glucagon) 1 mg IM PRN PRN PRN Reason: Hypoglycemia Sodium Chloride (Normal Saline 0.9%) 1,000 mls @ 75 mls/hr IV .[id number] [facility] Last Admin: 08/23/17 02:49 Dose: Not Given Dextrose/Water (D5w) 1,000 mls @ 0 mls/hr IV .Q0M PRN; As Directed PRN Reason: Hypoglycemia Insulin Human Regular (Humulin R) 0 units SC .MILD SLIDING SCALE PRN PRN Reason: Mild Correctional Scale Lisinopril (Zestril) 20 mg PO DAILY [facility] Last Admin: 08/23/17 08:28 Dose: 20 mg Magnesium Hydroxide (Milk Of Magnesium) 30 ml PO Q12H PRN PRN Reason: Constipation Metformin HCl (Glucophage) 500 mg PO DAILY [facility] Last Admin: 03/09/18 08:24 Dose: 500 mg Morphine Sulfate (Morphine Sulfate) 2 mg SLOW IVP Q1H PRN PRN Reason: Moderate Breakthrough Pain Last Admin: 08/22/17 09:29 Dose: 2 mg Ondansetron HCl (Zofran) 4 mg IVP Q6H PRN PRN Reason: Nausea Promethazine HCl (Phenergan) 12.5 mg PO Q4H PRN PRN Reason: Nausea/Vomiting Sodium Chloride (Flush - Normal Saline) 10 ml IVF PRN PRN PRN Reason: Saline Flush Tizanidine HCl (Zanaflex) 4 mg PO BID PRN PRN Reason: Muscle Spasm Last Admin: 08/22/17 21:47 Dose: 4 mg Tramadol HCl (Ultram) 50 mg PO Q6H PRN PRN Reason: Mild Pain (1-3)
[2017-08-23 15:42] VITALS: BP 132/88; TEMP 97.6
--- NOTE | 2017-08-26 08:48 | DIS ---
DATE OF ADMISSION: 08/20/2017 DATE OF DISCHARGE: 08/23/2017 ADMISSION DIAGNOSES: Vertebral disk disease at C3, 4 and C5-C6 with cord compression and myelopathy. DISCHARGE DIAGNOSES: Vertebral disk disease at C3, 4 and C5-C6 with cord compression and myelopathy. The patient is stable. CONSULTATIONS: None. PROCEDURES PERFORMED: Anterior cervical diskectomy, intervertebral arthrodesis, placement of interve rtebral biomechanical device at C3-C4 and C5-C6 ACDF. BRIEF HISTORY OF PRESENT ILLNESS: Mr. Mireles is a 42-year-old male who presents with cervical myelopa thy. He was doing well until several weeks ago where he has been having some dysesthesias in the arm s and weakness to the bilateral lower extremities. His cervical spine was found to have compression and was causing myelopathic symptoms in the MRI. He opted for neurosurgical intervention to prevent neurologic worsening. HOSPITAL COURSE: Postoperatively, Mr. Mireles did well. There have been no acute events in the hospit al. DISCHARGE PHYSICAL EXAMINATION: Please see last progress note as I physically was not there to care for the patient. ACTIVITY: The patient can have regular activity upon discharge with restrictions of lifting more sukhdeep n 15 pounds. He is to wear the C-collar brace for 4-8 weeks postoperatively. DIET: The patient can have regular diet upon discharge. HOME MEDICATIONS: 1. Lisinopril. 2. Bupropion HCL. 3. Atorvastatin calcium. 4. Metformin HCl. 5. Glimepiride. 6. Gabapentin. 7. Tylenol #3. 8. Tizanidine HCl. 9. Amlodipine besylate.
== END 2017-08-23 17:43 | disposition home or self-care (01) | DRG 473 ==
LOC: ERS 10:19 → SJJU 15:53
PROVIDERS: ADMIT Neurological Surgery; ATTEND Neurological Surgery
PROC: 0RG20A0 Fusion of 2 or more Cervical Vertebral Joints with Interbody Fusion Device, Anterior Approach, Anterior Column, Open Approach (ICD-10-PCS; principal; 2017-08-22)
PROC: 0RT30ZZ Resection of Cervical Vertebral Disc, Open Approach (ICD-10-PCS; 2017-08-22)
DX: M50.01 Cervical disc disorder with myelopathy, high cervical region (principal); E11.9 Type 2 diabetes mellitus without complications; E78.5 Hyperlipidemia, unspecified; I10 Essential (primary) hypertension; F17.210 Nicotine dependence, cigarettes, uncomplicated; E66.9 Obesity, unspecified; Z68.32 Body mass index [BMI] 32.0-32.9, adult; Z88.0 Allergy status to penicillin; Z88.8 Allergy status to other drugs, medicaments and biological substances; Z79.84 Long term (current) use of oral hypoglycemic drugs; Z79.899 Other long term (current) drug therapy
CPT/HCPCS: 36416; 72128; 72131; 72141; 72157; 72158; 80053; 81001; 85025; 85652; 86140; 87086; 96374; A4216; C1713; C1776; G8978-GP-CJ; G8979-GP-CI; G8987-GO-CK; G8988-GO-CI; J0131; J1100; J2001; J2270; J2405; J2704; J3010; J3490